=== PATIENT | female | born 1985 | race Hispanic/Latino ===

== ENCOUNTER 2018-05-18 23:29 | Emergency (ER) | payer OTHER ==
[2018-05-18] MEDS ORDERED: NACL 0.9% 1000 ML 1,000 ML IV ONE (23:52)
[2018-05-18] MEDS ORDERED: ZOFRAN IV ONE (23:52)
--- NOTE | 2018-05-18 23:55 | Emergency Department Report ---
HPI - General Time Seen by Provider: 05/18/18 23:38 - HPI HPI: Gee [id number] The patient is a 33-year-old female presenting with a chief complaint of alcohol intoxication. The patient states she was at a [employer] drinking coworkers and does not recall. Patient was apparently intoxicated at the [employer] EMS was called to transport the patient to the ED for evaluation. Patient denies any complaints except for some nausea. Location: Mental status Duration: [See above] Quality: Alcohol intoxication Severity: Moderate Modifying factors: [see above] Context: [see above] Mode of transportation: [not driving] ED Past Medical Hx - Past Medical History Previous Medical History?: No - Surgical History Past Surgical History?: No - Family History Family history: no significant - Social History Smoking Status: Never Smoker Substance Use Type: None (denies illicit drug use), Alcohol (occasional) - Medications Home Medications: Home Medications Medication Instructions Recorded Confirmed Last Taken Type Ondansetron [Zofran ODT TAB] 8 mg PO Q8HR #20 tab.rapdis 05/19/18 Unknown Rx ED Review of Systems ROS: Stated complaint: ETOH Other details as noted in HPI Constitutional: no symptoms reported Eyes: denies: eye pain ENT: denies: throat pain Respiratory: no symptoms reported Cardiovascular: denies: chest pain Endocrine: no symptoms reported Gastrointestinal: nausea Genitourinary: denies: dysuria Musculoskeletal: denies: back pain Neurological: denies: headache Physical Exam - Physical Exam Physical Exam: GENERAL: The patient is well-developed well-nourished female lying on stretcher not appearing to be in acute distress. [] HEENT: Normocephalic. Atraumatic. Extraocular motions are intact. Patient has moist mucous membranes. NECK: Supple. Trachea midline CHEST/LUNGS: Clear to auscultation. There is no respiratory distress noted. HEART/CARDIOVASCULAR: Regular. There is no tachycardia. There is no gallop rub or murmur. ABDOMEN: Abdomen is soft, nontender. Patient has normal bowel sounds. There is no abdominal distention. SKIN: There is no rash. There is no edema. There is no diaphoresis. NEURO: The patient is awake, alert, and oriented. The patient is cooperative. The patient has normal speech MUSCULOSKELETAL: There is no evidence of acute injury. ED Course - Reevaluation(s) Reevaluation #1: 05/19/18 03:54 Patient states she is feeling improved ED Medical Decision Making - Lab Data Result diagrams: 05/19/18 00:13 05/19/18 00:13 Laboratory Tests 05/19/18 05/19/18 05/19/18 00:13 00:13 00:13 WBC 7.6 RBC 3.97 Hgb 11.5 Hct 34.8 MCV 88 MCH 29 MCHC 33 RDW 15.7 H Plt Count 324 Lymph % (Auto) 23.2 [place] % (Auto) 4.4 Eos % (Auto) 0.6 Baso % (Auto) 0.6 Lymph # 1.8 [place] # 0.3 Eos # 0.0 Baso # 0.0 Seg Neutrophils % 71.2 H Seg Neutrophils # 5.4 Sodium 140 Potassium 3.8 Chloride 101.8 Carbon Dioxide 24 Anion Gap 18 BUN 15 Creatinine 0.8 Estimated GFR > 60 BUN/Creatinine Ratio 19 Glucose 112 H Calcium 8.6 Total Bilirubin < 0.20 AST 17 ALT 11 Alkaline Phosphatase 54 Total Protein 7.1 Albumin 4.6 Albumin/Globulin Ratio 1.8 HCG, Qual Urine Bilirubin Urine RBC (Auto) U Epithel Cells (Auto) Urine Opiates Screen Urine Methadone Screen Ur Barbiturates Screen Ur Phencyclidine Scrn Ur Amphetamines Screen U Benzodiazepines Scrn Urine Cocaine Screen U Marijuana (THC) Screen Drugs of Abuse Note Plasma/Serum Alcohol 0.21 H 05/19/18 05/19/18 05/19/18 00:13 03:00 03:00 WBC RBC Hgb Hct MCV MCH MCHC RDW Plt Count Lymph % (Auto) [place] % (Auto) Eos % (Auto) Baso % (Auto) Lymph # [place] # Eos # Baso # Seg Neutrophils % Seg Neutrophils # Sodium Potassium Chloride Carbon Dioxide Anion Gap BUN Creatinine Estimated GFR BUN/Creatinine Ratio Glucose Calcium Total Bilirubin AST ALT Alkaline Phosphatase Total Protein Albumin Albumin/Globulin Ratio HCG, Qual Negative Urine Bilirubin Neg Urine RBC (Auto) 7.0 U Epithel Cells (Auto) 7.0 Urine Opiates Screen Presumptive negative Urine Methadone Screen Presumptive negative Ur Barbiturates Screen Presumptive negative Ur Phencyclidine Scrn Presumptive negative Ur Amphetamines Screen Presumptive negative U Benzodiazepines Scrn Presumptive negative Urine Cocaine Screen Presumptive negative U Marijuana (THC) Screen Presumptive negative Drugs of Abuse Note Disclamer Plasma/Serum Alcohol - Differential Diagnosis alcohol intoxication Critical care attestation.: If time is entered above; I have spent that time in minutes in the direct care of this critically ill patient, excluding procedure time. ED Disposition Clinical Impression: Alcohol intoxication Disposition: [id number] TO HOME OR SELFCARE Is pt being admited?: No Does the pt Need Aspirin: No Condition: Stable Instructions: Alcohol Intoxication (ED) Additional Instructions: Return to the emergency department immediately should you develop worsening symptoms, fever, inability to tolerate food or liquid or any other concerns. Prescriptions: Ondansetron [Zofran ODT TAB] 8 mg PO Q8HR #20 tab.rapdis Referrals: PRIMARY CARE, [Primary Care Provider] - 3-5 Days Time of Disposition: 03:54
[2018-05-19 00:37] LABS: Basophils % (Auto) 0.6 % (0.0-1.8); Eosinophils % (Auto) 0.6 % (0.0-4.3); Hematocrit 34.8 % (30.3-42.9); Hemoglobin 11.5 gm/dl (10.1-14.3); Lymphocytes # (Auto) 1.8 K/mm3 (1.2-5.4); Lymphocytes % (Auto) 23.2 % (13.4-35.0); Mean Corpuscular HGB Conc 33 % (30-34); Mean Corpuscular Hemoglobin 29 pg (28-32); Mean Corpuscular Volume 88 fl (79-97); Monocytes # (Auto) 0.3 K/mm3 (0.0-0.8); Monocytes % (Auto) 4.4 % (0.0-7.3); Platelet Count 324 K/mm3 (140-440); Red Blood Count 3.97 M/mm3 (3.65-5.03); Red Cell Distribution Width 15.7 % (13.2-15.2)
[2018-05-19 01:03] LABS: Alanine Aminotransferase 11 units/L (7-56); Albumin 4.6 g/dL (3.9-5); BUN/Creatinine Ratio 19; Blood Urea Nitrogen 15 mg/dL (7-17); Calcium 8.6 mg/dL (8.4-10.2); Hemolysis Index 0
[2018-05-19] MEDS ORDERED: REGLAN IV ONE (01:48)
[2018-05-19] MEDS ORDERED: NACL 0.9% 1000 ML 1,000 ML IV ONE (01:48)
[2018-05-19 03:38] LABS: Amphetamine Screen,Urine PRESUMPTIVE NEGATIVE; Bacteria,Urine 1+ /HPF (Negative); Benzodiazepines Screen,Urine PRESUMPTIVE NEGATIVE; Bilirubin,Urine NEG (Negative); Blood,Urine SM (Negative); Cannabinoid Screen,Urine PRESUMPTIVE NEGATIVE; Cocaine Screen,Urine PRESUMPTIVE NEGATIVE; Color,Urine Yellow (Yellow); Methadone Screen,Urine PRESUMPTIVE NEGATIVE; Mucus,Urine FEW /HPF; Opiate Screen,Urine PRESUMPTIVE NEGATIVE; Protein,Urine <15 mg/dL mg/dL (Negative); Urobilinogen,Urine < 2.0 mg/dL (<2.0)
[2018-05-19 08:51] VITALS: BP 100/52
== END 2018-05-19 04:07 | disposition home or self-care (01) ==
LOC: ED 23:29
DX: F10.129 Alcohol abuse with intoxication, unspecified (principal)
CPT/HCPCS: 36415; 80053; 80307; 81001; 84703; 85025; 96374; 96375; 99284; G0480; J2405; J2765; J7030; 80320